=== PATIENT | female | born 1960 | race Caucasian/White ===

== ENCOUNTER 2020-08-15 01:15 | Outpatient (CLI) | payer OTHER, SELFPAY ==
--- NOTE | 2020-08-15 08:44 | DI.MAMMO_ITS ---
EXAM: MG MAMMO SCREENING CLINICAL HISTORY: SCREENING, Z12.39, FAMILY H/O BREAST CA,Z80.3 TECHNIQUE: Bilateral full field digital CC and MLO mammographic images were obtained with 3D tomosyn thesis and utilizing computer aided detection (CAD). COMPARISON: Available for comparison. FINDINGS: Masses/Architectural Distortion: None seen. Microcalcifications: No suspicious pleomorphic-type are seen. Skin Thickening/Nipple Retraction: None. IMPRESSION: 1. No significant interval change with no specific features of malignancy noted. 2. Unless there is more urgent need, screening mammography is recommended, as per [place] [employer] guidelines. BI-RADS Category 1 - Negative Breast Density - Category C - Heterogeneously dense Breast density category C or D implies that the patient has dense breast tissue. Dense breast tissue is very common and is not abnormal but dense breast tissue can make it harder to find cancer on a ma mmogram. Also, dense breast tissue may increase their breast cancer risk. This information about the result of the mammogram report was provided to the patient to raise their awareness. Use this report when you speak with the patient about their risks for breast cancer, which includes their family hist ory. At that time, you may recommend for more screening tests (Ultrasound or MRI) as they might be us eful based on their risk. A negative radiographic report should not delay biopsy if a dominant or clinically suspicious mass is present. Up to ten percent of cancers are not identified on mammography. A negative report may reinforce clinical impression. Adenosis and dense breasts may obscure an underlying neoplasm. False positive reports average 6 to 10%. Patient will receive a letter notifying them of these results.
== END 2020-08-15 01:16 ==
PROVIDERS: PCP Nurse Practitioner; Visit Provider Nurse Practitioner
DX: Z12.31 Encounter for screening mammogram for malignant neoplasm of breast (principal); Z80.3 Family history of malignant neoplasm of breast
CPT/HCPCS: 77063; 77067

== ENCOUNTER 2020-08-16 14:16 | Emergency (ER) | payer OTHER, SELFPAY ==
[2020-08-16] VITALS (46 sets, daily range): BP systolic 112–150; BP diastolic 57–88; PULSE 51–98; RESP 11–21; TEMP 36.6; O2SAT 96–100
--- NOTE | 2020-08-16 14:15 | RT.EKG_ITS ---
APPROVED REPORT Exam: Resting ECG Patient Location: E HR:63 bpm ECG Measurements Heart Rate 63 AXIS MO 116 P -10 QRSd 80 QRS 57 QT 419 T 35 QTc 429 Conclusion Sinus rhythm...normal P axis, V-rate 60- 99
--- NOTE | 2020-08-16 15:00 | DI.RAD_ITS ---
EXAM: XR CHEST 2V PA LATERAL CLINICAL HISTORY: chest pain. TECHNIQUE: 2D digital imaging was performed. COMPARISON: No exams were available for comparison FINDINGS: Heart size is normal. The mediastinum is not widened. Lungs are clear. No infiltrates nor pleural effusions. IMPRESSION: No acute pulmonary findings. DATA REPOSITORY: RADIATION DOSE DELIVERED:
[2020-08-16] MEDS: FAMOTIDINE 20 MG/50 ML BAG 200 MG IVPB (15:21)
[2020-08-16] MEDS: Mylanta Suspension 30 ML CUP PO (15:21)
[2020-08-16 15:22] LABS: Abs Immature Grans 0.02 10^3/uL (0.0-0.06); Absolute Basophil Count 0.06 10^3/uL (0.0-0.2); Absolute Eosinophil Count 0.09 10^3/uL (0.0-0.7); Basophils % 0.7; HCT 41.4 % (36.0-46.0); HGB 13.6 g/dL (11.2-15.7); Immature Grans % 0.2; Lymphocytes % 14.7; MCH 28.7 pg (27.0-33.0); MCHC 32.9 % (32.0-36.0); MCV 87.3 fL (80-95); MPV 12.2 fL (8.0-11.0); Monocytes % 5.6; Neutrophils % 77.8; Nucleated RBC 0 %; Platelet Count 182 10^3/uL (130-400); RBC 4.74 10^6/uL (3.93-5.22); RDW 12.3 % (11.7-14.6); RDW-SD 39.9 fL; WBC 8.87 10^3/uL (4.4-10.8)
[2020-08-16] MEDS: ALPRAZolam 0.25 MG TAB PO (15:22)
--- NOTE | 2020-08-16 15:35 | ED.GENADUL_ITS ---
Discharge Plan Disposition Patient Disposition: HOME Condition: Stable Discharge Details Clinical Impression: Atypical chest pain, Abdominal bloating, Anxiety Primary Care Provider: Poonam Rodriguez ED Provider: Jenny Medellin Home Meds and New Rx's Prescriptions: New famotidine [Pepcid] 20 mg tablet 20 mg PO DAILY Qty: 14 RF: 0 Continued levothyroxine 25 mcg tablet 25 mcg PO DAILY RF: 0 amlodipine 10 mg tablet 10 mg PO DAILY RF: 0 metoprolol succinate 50 mg tablet extended release 24 hr 50 mg PO DAILY RF: 0 estradiol 0.0375 mg/24 hr Patch Semiweekly 1 patch transdermal DIRECTED RF: 0 Discharge Instructions Instructions: Chest Pain (ED), Anxiety (ED) Additional Instructions: Take the Ativan as needed and directed for feelings of anxiety. Drink plenty of fluids and get plenty of rest. Follow-up with your primary care doctor in 1 week. You will receive a call from the radiology department regarding follow-up for your outpatient stress test. If your symptoms do not improve or worsen, you can also follow-up with general surgery for consideration of upper endoscopy. Return to the emergency department with any worsening or new concerning symptoms. Referrals: Shira Lovelace DO [OSTEOPATHIC DOCTOR] - Discharge Data Discharge Date/Time-TO BE ENTERED AT DEPARTURE: 08/16/20 20:35 Discharge Physician: Jenny Medellin Medical Decision Making <Yosi Duron MD - Last Filed: 08/24/20 20:45> 1530??60-year-old female here with retrosternal chest pain intermittent over the past 6 days, associated and worse with anxiety. Patient is hemodynamically stable. Patient is saturating well with no respiratory distress. Plan to obtain chest x-ray. Consideration ACS. Screening ECG was reviewed and interpreted by me: Sinus rhythm 63 bpm, normal axis, no STEMI, nondiagnostic. Initial troponin negative. Plan to obtain delta troponin. Patient is low risk by Wells criteria. Will obtain D-dimer. Consider GI etiology including esophagitis. I will give Pepcid and Mylanta. Anxiety is definitely contributing to symptoms and may be etiology. We will give Xanax 0.25 mg for anxiety. --Initial troponin negative. Chest x-ray interpreted by radiology: Negative. --Patient was reassessed and notes significant improvement in symptoms after GI meds and antiemetic. Plan for delta troponin and repeat ECG. <Jenny Elisa SrivastavajonnieDO - Last Filed: 08/21/20 09:08> 1715 -- please see Dr. Duron's note for initial presentation, exam and plan. Case endorsed to follow-up on repeat troponin and EKG. Patient is a 60-year-old female who presents with abdominal bloating and early satiety for the last several weeks with intermittent squeezing chest pain for the past week. She has no other associated symptoms. History and presentation not consistent with PE, dissection or ACS. Appears most likely consistent with GI etiology, with differential including PUD, gastritis, GERD, esophagitis. 1840 -- Repeat troponin negative. Repeat EKG unchanged. Patient reassessed and she feels much better and good to go home. We will send home with Ativan and prescription for Pepcid. An order for stress test placed. A rapid Covid test was obtained. Advised to follow up with the primary care doctor for re-evaluation. She was advised that she can also follow-up outpatient with general surgery for an upper endoscopy if her symptoms do not improve or worsen. Usual and customary return precautions given prior to discharge. Medical Records Medical records reviewed: Yes I reviewed the patient's medical records. Imaging Data Radiologic Study: Radiologist's impression: XR CHEST 2V PA LATERAL CLINICAL HISTORY: chest pain. TECHNIQUE: 2D digital imaging was performed. COMPARISON: No exams were available for comparison FINDINGS: Heart size is normal. The mediastinum is not widened. Lungs are clear. No infiltrates nor pleural effusions. IMPRESSION: No acute pulmonary findings. Lab Data Lab results reviewed: Yes I reviewed the patient's lab results. Labs: Laboratory Tests Range/Units 08/16/20 08/16/20 08/16/20 14:45 14:45 14:45 WBC (4.4-10.8) 10^3/uL 8.87 RBC (3.93-5.22) 10^6/uL 4.74 Hgb (11.2-15.7) g/dL 13.6 Hct (36.0-46.0) % 41.4 MCV (80-95) fL 87.3 MCH (27.0-33.0) pg 28.7 MCHC (32.0-36.0) % 32.9 RDW (11.7-14.6) % 12.3 Plt Count (130-400) 10^3/uL 182 MPV (8.0-11.0) fL 12.2 H Immature Gran % 0.2 Neutrophils % 77.8 Lymphocytes % 14.7 Monocytes % 5.6 Eosinophils % 1.0 Basophils % 0.7 Nucleated RBC % % 0 Absolute Neutrophils (1.2-6.7) 10^3/uL 6.90 H Absolute Lymphocytes (1.2-3.4) 10^3/uL 1.30 Absolute Monocytes (0.1-0.8) 10^3/uL 0.50 Absolute Eosinophils (0.0-0.7) 10^3/uL 0.09 Absolute Basophils (0.0-0.2) 10^3/uL 0.06 D-Dimer (<500) ng/mlFEU 222 Sodium (136-145) mmol/L 136 Potassium (3.5-5.1) mmol/L 3.9 Chloride (98-107) mmol/L 100 Carbon Dioxide (21.0-32.0) mmol/L 27.9 Anion Gap (3-11) mmol/L 8.1 BUN (7-18) mg/dL 18 Creatinine (0.55-1.02) mg/dL 0.9 Estimated GFR/1.73 m2 (mL/min/1.73m2) >= 60.00 Glucose (74-106) mg/dL 118 H Calcium (8.5-10.1) mg/dL 10.0 Magnesium (1.8-2.4) mg/dL 2.2 Total Bilirubin (0.2-1.0) mg/dL 0.3 AST (15-37) U/L 18 ALT (14-59) U/L 16 Alkaline Phosphatase (46-116) U/L 86 Troponin I (<0.06) ng/mL < 0.05 Total Protein (6.4-8.2) g/dL 7.6 Albumin (3.4-5.0) g/dL 4.5 TSH (0.36-3.74) uIU/mL 2.62 Range/Units 08/16/20 08/16/20 15:36 18:14 WBC (4.4-10.8) 10^3/uL RBC (3.93-5.22) 10^6/uL Hgb (11.2-15.7) g/dL Hct (36.0-46.0) % MCV (80-95) fL MCH (27.0-33.0) pg MCHC (32.0-36.0) % RDW (11.7-14.6) % Plt Count (130-400) 10^3/uL MPV (8.0-11.0) fL Immature Gran % Neutrophils % Lymphocytes % Monocytes % Eosinophils % Basophils % Nucleated RBC % % Absolute Neutrophils (1.2-6.7) 10^3/uL Absolute Lymphocytes (1.2-3.4) 10^3/uL Absolute Monocytes (0.1-0.8) 10^3/uL Absolute Eosinophils (0.0-0.7) 10^3/uL Absolute Basophils (0.0-0.2) 10^3/uL D-Dimer (<500) ng/mlFEU Sodium (136-145) mmol/L Potassium (3.5-5.1) mmol/L Chloride (98-107) mmol/L Carbon Dioxide (21.0-32.0) mmol/L Anion Gap (3-11) mmol/L BUN (7-18) mg/dL Creatinine (0.55-1.02) mg/dL Estimated GFR/1.73 m2 (mL/min/1.73m2) Glucose (74-106) mg/dL Calcium (8.5-10.1) mg/dL Magnesium (1.8-2.4) mg/dL Total Bilirubin (0.2-1.0) mg/dL AST (15-37) U/L ALT (14-59) U/L Alkaline Phosphatase (46-116) U/L Troponin I (<0.06) ng/mL 0.05 Total Protein (6.4-8.2) g/dL Albumin (3.4-5.0) g/dL TSH (0.36-3.74) uIU/mL Cancelled ECG Data Attestation: I personally reviewed and interpreted this ECG (s) as follows: Interpretation: #1 -- rate of 63, sinus, no acute ST elevation or depression. NJ 116. QRS 80. QTc 429. #2 -- rate of 56, sinus, no acute ST elevation or depression. NJ 134. QRS 70. QTc 432. HPI <Yosi Duron MD - Last Filed: 08/24/20 20:45> General Mode of arrival: ambulatory . Date/Time Provider Initiated Documentation: 08/16/20 14:27 . Limitations to Documentation: no limitations . Information obtained by: patient . HPI Narrative: 60-year-old female with history of Graves' disease, hypertension, here with chief complaint of chest tightness. Patient notes tightness has been intermittent, frequent brief episodes over the past 6 days. Tightness is localized to lower retrosternal. Patient notes that anxiety makes her pain worse. She has been feeling anxiety recently and notes some significant life stressors of recent. She denies history of anxiety disorder. She has no associated shortness of breath. No leg swelling or calf pain or recent immobility. She does note that she has had recent stomach issues including feeling gassy and bloated. She notes that is being treated by her primary care physician and has been maintaining a gluten-free diet which has seemed to help with her GI issues. Related Data Home Medications Medication Instructions Recorded Confirmed amlodipine 10 mg PO DAILY 08/16/20 08/16/20 estradiol 1 patch TRANSDERMAL DIRECTED 08/16/20 08/16/20 famotidine [Pepcid] 20 mg PO DAILY #14 tab 08/16/20 levothyroxine 25 mcg PO DAILY 08/16/20 08/16/20 metoprolol succinate 50 mg PO DAILY 08/16/20 08/16/20 Previous Rx's Medication Instructions Recorded famotidine [Pepcid] 20 mg PO DAILY #14 tab 08/16/20 Allergies Allergy/AdvReac Type Severity Reaction Status Date / Time amoxicillin AdvReac Intermediate rash/itchy Unverified 08/16/20 14:31 codeine AdvReac Intermediate rash / Unverified 08/16/20 14:31 itchy General Stated Complaint: Chest Pain DIANE: 2 Review of Systems <Yosi Duron MD - Last Filed: 08/24/20 20:45> All systems reviewed & are unremarkable except as noted in HPI and below Constitutional Constitutional: Denies fever(s) Cardiovascular Cardiovascular: Reports chest pain and Denies dyspnea Respiratory Respiratory: Denies cough and Denies dyspnea Gastrointestinal Gastrointestinal: Reports as per HPI, Denies abdominal pain, Denies melena, Denies hematochezia and Denies vomiting PFSH <Yosi Duron MD - Last Filed: 08/24/20 20:45> Medical History (Updated 08/16/20 @ 19:46 by Jenny Medellin DO) Graves disease Hypertension Social History Smoking/Tobacco Use Status: Former Tobacco Use Smoking risk assessment performed?: Yes Alcohol Intake: never Drug use: Occasionally Details: CBD chew Do you feel safe at home: Yes Do you feel safe in your relationship?: Yes Exam <Yosi Duron MD - Last Filed: 08/24/20 20:45> Const General: cooperative and no acute distress HENMT Mouth: mucous membranes dry Eyes Conjunctivae: normal conjunctivae Sclera: normal sclerae Neck Neck: trachea midline and supple Thyroid: other (Left neck thyroid nodule) Resp Auscultation: clear to auscultation bilaterally, no rales, no rhonchi and no wheezes Cardio Rate: regular rate and not tachycardic Rhythm: regular rhythm GI Palpation: soft, not firm, no guarding, no masses and not rigid Skin General skin exam: no rashes or lesions noted Neuro General: patient alert, patient awake and tone normal Extrem General: no edema Psych Appearance: grossly normal Mental Status: mental status grossly normal Speech and Movement: speech and movement normal Mood: anxious mood Course <Yosi Duron MD - Last Filed: 08/24/20 20:45> Vital Signs Vital signs: Vital Signs Temperature 36.6 C 08/16/20 14:21 Pulse 66 08/16/20 14:21 Respiratory Rate 16 08/16/20 14:21 Blood Pressure 142/74 H 08/16/20 14:21 Pulse Oximetry 99 08/16/20 14:21 Temperature 36.6 C 08/16/20 14:21 Temperature Source Skin 08/16/20 14:21 Pulse 61 08/16/20 15:15 Pulse 60 08/16/20 15:16 Respiratory Rate 14 08/16/20 15:25 Respiratory Effort Non-Labored 08/16/20 15:25 Respiratory Depth Normal 08/16/20 15:25 Respiratory Pattern Normal 08/16/20 15:25 Blood Pressure 134/88 08/16/20 15:15 Blood Pressure Mean 92 08/16/20 15:16 Blood Pressure Position Sitting 08/16/20 14:21 Pulse Oximetry 100 08/16/20 15:20 Oxygen Delivery Method Room Air 08/16/20 14:21 Oxygen Flow Rate 0 08/16/20 14:21 Pain Level 5 08/16/20 15:25 Lab/Test Results Lab/Test Results: Laboratory Tests Range/Units 08/16/20 14:45 WBC (4.4-10.8) 10^3/uL 8.87 RBC (3.93-5.22) 10^6/uL 4.74 Hgb (11.2-15.7) g/dL 13.6 Hct (36.0-46.0) % 41.4 MCV (80-95) fL 87.3 MCH (27.0-33.0) pg 28.7 MCHC (32.0-36.0) % 32.9 RDW (11.7-14.6) % 12.3 Plt Count (130-400) 10^3/uL 182 MPV (8.0-11.0) fL 12.2 H Immature Gran % 0.2 Neutrophils % 77.8 Lymphocytes % 14.7 Monocytes % 5.6 Eosinophils % 1.0 Basophils % 0.7 Nucleated RBC % % 0 Absolute Neutrophils (1.2-6.7) 10^3/uL 6.90 H Absolute Lymphocytes (1.2-3.4) 10^3/uL 1.30 Absolute Monocytes (0.1-0.8) 10^3/uL 0.50 Absolute Eosinophils (0.0-0.7) 10^3/uL 0.09 Absolute Basophils (0.0-0.2) 10^3/uL 0.06 Sign Out <Yosi Duron MD - Last Filed: 08/24/20 20:45> Sign Out Data: Sign Out Comment: Follow-up delta troponin and repeat ECG and reassess patient for disposition. Last updated by Yosi Duron MD at 08/16/20 17:32
[2020-08-16 15:39] LABS: ALT 16 U/L (14-59); AST 18 U/L (15-37); Albumin 4.5 g/dL (3.4-5.0); Alkaline Phosphatase 86 U/L (46-116); Anion Gap 8.1 mmol/L (3-11); BUN 18 mg/dL (7-18); Bilirubin, Total 0.3 mg/dL (0.2-1.0); CO2 27.9 mmol/L (21.0-32.0); CREATININE 0.9 mg/dL (0.55-1.02); Chloride 100 mmol/L (98-107); Glucose 118 mg/dL (74-106); Magnesium 2.2 mg/dL (1.8-2.4); Potassium 3.9 mmol/L (3.5-5.1); Sodium 136 mmol/L (136-145); Total Protein 7.6 g/dL (6.4-8.2); Troponin I < 0.05 ng/mL (<0.06)
[2020-08-16 16:25] LABS: TSH (W/Ref FT4) 2.62 uIU/mL (0.36-3.74)
[2020-08-16 16:28] LABS: D-Dimer 222 ng/mlFEU (<500)
--- NOTE | 2020-08-16 17:30 | RT.EKG_ITS ---
APPROVED REPORT Exam: Resting ECG Patient Location: E HR:56 bpm ECG Measurements Heart Rate 56 AXIS UT 134 P 64 QRSd 70 QRS 55 QT 446 T 57 QTc 432 Conclusion Sinus bradycardia...rate< 60. No STEMI. I have reviewed and interpreted ECG and agree with software generated interpretation.
[2020-08-16] MEDS: Lactated Ringers 1,000 ML 1000 ML IV (17:45)
[2020-08-16 18:37] LABS: Troponin I 0.05 ng/mL (<0.06)
[2020-08-16] MEDS: LORazepam 0.5 MG TAB 2.5 MG PO (20:28)
[2020-08-17 10:51] LABS: COVID-19 PCR Negative (Negative)
--- NOTE | 2020-08-17 12:05 | NUR.NOTE ---
Nursing Note: Pt contacted via home phone on file and notified of negative covid result.
== END 2020-08-16 20:35 | disposition home or self-care (01) ==
PROVIDERS: Student in an Organized Health Care Education/Training Program; Emergency Provider Physician Assistant; PCP Nurse Practitioner
DX: R07.89 Other chest pain (principal); R14.0 Abdominal distension (gaseous); F41.9 Anxiety disorder, unspecified; Z20.822 Contact with and (suspected) exposure to COVID-19
CPT/HCPCS: 36415; 80053; 93005; 96361; 96365; 99285; 71046; 83735; 84443; 84484; 85025; 85379; 93010; 99284

== ENCOUNTER → 2020-09-03 00:33 | Outpatient (CLI) | payer OTHER, SELFPAY ==
--- NOTE | 2020-09-03 09:00 | ETT_ITS ---
APPROVED REPORT Exam: Exercise Treadmill Patient Location: Out-Patient Room/Bed: Stress Nurse: Saba Arnold RN Ordering Provider:MARTHA NUR, Contact Number: [phone] BMI: 19.08 Baseline Rhythm: Sinus Rhythm Indications: Atypical chest pain. Medical History Medical History: Hypothyroidism, HTN, Anxiety, Palpitations. Cardiac Medications: Amlodipine, Metoprolol succinated, Levothyroxine, Lexapro. Allergies: Amoxicillin, Codeine Cardiac Risk Factors: FHX of CAD, HTN, Smoking (former) Previous Cardiac Procedures: None Pretest Chest Pain Characteristics: None Exercise History: Sedentary Physical Disabilities: None Lung Sounds: Clear to auscultation Heart Sounds: Regular Stress Test Details Test: Exercise stress testing was performed using a Justen protocol. Rest Stress HR Resting HR Supine: 63 bpm Max Heart Rate (APMHR): 158 bpm Resting HR Standin bpm Target HR (85% APMHR): 134 bpm Max HR Achieved: 156 bpm % of APMHR: 98 Recovery HR: 75 bpm HR response to stress: Normal HR response to stress BP Resting BP Supine: 142/76 mmHg Resting BP Standin/78 mmHg Max BP: 198/70 mmHg Recovery BP: 144/72 mmHg BP response to stress: Normal blood pressure response to stress. ECG Resting ECG: Sinus Rhythm Ectopy: None. Stress ECG: Sinus Tachycardia ST Change: No significant ST segment changes noted Arrhythmia: occasional PVCs, PACs. Recovery ECG: Sinus Rhythm Recovery ST Change: No significant ST segment changes noted Recovery Arrhythmia: PACs. Clinical Reason for Termination: Fatigue Stress Symptoms: Lightheaded when exercise stopped. Exercise duration: 9 min45 sec Highest Stage Reached: Stage 4: 4.2 mph at 16% grade. Exercise capacity: 11.36 METs Treviño Treadmill Score: 9.3 Rate Pressure Product: [id number] Stress ECG Conclusion 1. Electrocardiogram showed voltage for left ventricular hypertrophy 2. Patient exercised on the Justen protocol and completed a workload of 11.36 METS, limited by fatigue 3. Normal heart rate and blood pressure response to exercise. Patient achieved 98% of predicted hear t rate for age 4. Electrocardiographically there was no evidence of myocardial ischemia 5. Sporadic premature atrial and ventricular contractions were seen Treviño Treadmill Score is 9.3 which is Low risk. Stress Test Summary STAGE Time (mins) Speed (mph) Grade (%) HR BP SYMPTOMS METS Supine 63 142/76 Standing 83 140/78 1 3 1.7 10 121 162/70 4.6 2 6 2.5 12 135 176/68 7 3 9 3.4 14 145 198/70 10.2 1 min recovery 130 180/64 Lightheaded. Symptoms resolved when lying on stretcher. 3 min recovery 90 166/70 6 min recovery 75 144/72
== END ==
PROVIDERS: PCP Nurse Practitioner; Visit Provider Nurse Practitioner
DX: R07.89 Other chest pain (principal); Z82.49 Family history of ischemic heart disease and other diseases of the circulatory system; I10 Essential (primary) hypertension; Z87.891 Personal history of nicotine dependence; I49.1 Atrial premature depolarization; I49.3 Ventricular premature depolarization; I51.7 Cardiomegaly
CPT/HCPCS: 93017

== ENCOUNTER 2020-10-30 02:03 | Outpatient (CLI) | payer OTHER, SELFPAY ==
--- NOTE | 2020-10-30 07:37 | DI.US_ITS ---
APPROVED REPORT EXAM: Comprehensive 2D, Doppler, and color-flow Echocardiogram Patient Location: Out-Patient Slope Hoist Operator: Chica Duffy RDCS (AE) Indications: Ventricular hypertrophy, Atypical chest pain Other Information Study Quality: Good Conclusion Left Ventricle : The left ventricle is normal size. The left ventricular systolic function is normal. The left ventricular ejection fraction is within the normal range. There is normal left ventricular wall thickness. There is normal LV segmental wall motion. The left ventricular diastolic function is normal. LVEF is 60%. Right Ventricle : The right ventricle is normal size. The right ventricular systolic function is norm al. The RVSP is 21.6 mmHg. Atria : The left atrium size is normal. The right atrium size is normal. Mitral Valve : The mitral valve is normal in structure. Mild mitral regurgitation. No evidence of marzena ral valve stenosis. Great Vessels : The aortic root is normal in size. Ascending aorta is not well visualized. IVC is nor mal in size and collapses >50% with inspiration. Wall motion Left Ventricle The left ventricle is normal size. The left ventricular systolic function is normal. The left ventric ular ejection fraction is within the normal range. There is normal left ventricular wall thickness. T here is normal LV segmental wall motion. The left ventricular diastolic function is normal. There is no ventricular septal defect visualized. LVEF is 60%. Right Ventricle The right ventricle is normal size. The right ventricular systolic function is normal. The RVSP is 21 .6 mmHg. Atria The left atrium size is normal. The right atrium size is normal. The interatrial septum is intact wit h no evidence for an atrial septal defect. Aortic Valve The aortic valve is normal in structure. Aortic valve is trileaflet. There is no aortic valvular sten osis. No aortic regurgitation is present. Mitral Valve The mitral valve is normal in structure. No evidence of mitral valve stenosis. Mild mitral regurgitat ion. Tricuspid Valve The tricuspid valve is normal in structure. There is no tricuspid valve stenosis. Trace tricuspid reg urgitation. Pulmonic Valve The pulmonary valve is normal in structure. There is no pulmonic valvular stenosis. There is no pulmo johan valvular regurgitation. Great Vessels The aortic root is normal in size. Ascending aorta is not well visualized. IVC is normal in size and collapses >50% with inspiration. Pericardium There is no pericardial effusion. 2D Dimensions IVSD d PLAX 0.79 cm F: 0.6-1.0 LV Vol A2C d MOD 59.5 mL LVPW d PLAX 0.79 cm F: 0.6 - 1.0 LV Vol A4C d MOD 56.5 mL LVID d PLAX 4.41 cm F: 3.8 - 5.2 LA vol/ BSA A2C s A-L 29.7 mL/m2 LVDs 2.85 cm F: 2.2 - 3.5 LA vol/ BSA A4C s A-L 20.9 mL/m2 Ao Root d 2.16 cm F: 2.7 - 3.3 LA Vol/ BSA Biplane s A-L 26.7 mL/m2 RA Area A4C 8.24 cm2 LA Area A4C s MOD 12.20 cm2 RA Vol/ BSA A4C s A-L 10.4 mL/m2 LA Area A2C s MOD 15.55 cm2 LV EF Teichholz 64.8 % LV EF A4C MOD 58.4 % LVEF (Rizvi's) 58.44 % F: 54 - 74 LV EF A2C MOD 59.9 % LV Volume 49.11 mL F: 46 - 106 LV EF Biplane MOD 58.4 % LV Volume Index 34.10 mL/m2 F: 29 - 61 SV 33.90 mL LV Vol Biplane MOD 58.0 mL SV Index 23.50 mL/m2 FS 35.20 % M-Mode TAPSE 2.50 cm (M/F) >1.7 LV Diastology MV E' medial 0.106 (>0.07 m/s) E/A Ratio 1.6 LV E/e MED 7.25 (<14) MV E Vmax 0.78 (0.4-1.3 m/s) MV E' lateral 0.117 (>0.1 m/s) MV A Vmax 0.50 (0.4-1.3 m/s) LV E/e LAT 6.60 (<14) MV E/A Ratio 1.53 MV E/E' medial 7.29 MV E/E' lateral 6.61 Aortic Valve LVOT Area 2.86 cm2 AoV Area Vmax 2.27 cm2 LVOT Vmax 1.14 m/s AoV Area/ BSA (Vmax) 1.57 cm2/m2 LVOT Mean Meliton. 0.72 m/s SERGEI Mean Meliton. 2.18 cm2 LVOT Peak Grad 5.2 mmHg SERGEI Mean Meliton. Index 1.51 cm2/m2 LVOT Mean Grad 2.5 mmHg LVOT VTI 0.294 m LVOT Diam s 1.90 cm AoV Vmax 1.43 m/s Velocity Ratio 0.79 AoV Mean Meliton. 0.95 m/s AoV Peak Grad 8.2 mmHg LVOT SV 84.05 mL AoV Mean Grad 4.1 mmHg AoV VTI 0.319 m AoV Area VTI 2.64 cm2 AoV Area/ BSA (VTI) 1.83 cm/m2 Mitral Valve MV DT 193 (160-240 msec) MR Vmax 4.07 m/s MV PHT 56 msec MR VTI 1.602 m MV Area PHT 3.92 cm2 MR Peak Grad 66.4 mmHg MV VTI 0.311 m MR Mean Grad 50.8 mmHg MV VTI Annulus 0.288 m MR PISA Radius 0.40 cm MV Area VTI 2.52 (4.0-6.0 cm2) MR EROA 0.09 cm2 MR Aliasing Velocity 0.35 m/s MR PISA 1.03 cm2 Pulmonary Valve PV Vmax 0.97 (0.5-1.5 m/s) RVOT Peak Gr. 2.52 mmHg PV Peak Grad 3.8 mmHg RVOT Mean Gr. 1.20 mmHg PV Mean Grad 2.0 mmHg RVOT VTI 0.192 m PV VTI 0.243 m RVOT Vmax 0.79 m/s Tricuspid Valve TR Peak Grad 18.5 mmHg TR Vmax 2.16 m/s RA Pressure 3.00 mmHg RVSP (TR) 21.6 mmHg
== END 2020-10-30 02:23 ==
PROVIDERS: PCP Nurse Practitioner; Visit Provider Nurse Practitioner
DX: R07.89 Other chest pain (principal); I51.7 Cardiomegaly; I34.0 Nonrheumatic mitral (valve) insufficiency
CPT/HCPCS: 93306

== ENCOUNTER 2021-08-26 12:10 | Outpatient (REF) | payer OTHER, SELFPAY ==
[2021-08-26 15:23] LABS: HCT 38.3 % (36.0-46.0); HGB 12.3 g/dL (11.2-15.7); MCH 28.7 pg (27.0-33.0); MCHC 32.1 % (32.0-36.0); MCV 89.3 fL (80-95); MPV 12.4 fL (8.0-11.0); Platelet Count 149 10^3/uL (130-400); RBC 4.29 10^6/uL (3.93-5.22); RDW 12.7 % (11.7-14.6); RDW-SD 41.7 fL; WBC 5.99 10^3/uL (4.4-10.8)
[2021-08-26 15:51] LABS: Anion Gap 8.5 mmol/L (3-11); BUN 16 mg/dL (7-18); CO2 30.5 mmol/L (21.0-32.0); CREATININE 0.9 mg/dL (0.55-1.02); Calcium 9.3 mg/dL (8.5-10.1); Chloride 102 mmol/L (98-107); Glucose 80 mg/dL (74-106); Sodium 141 mmol/L (136-145); TSH 1.42 uIU/mL (0.36-3.74)
== END 2021-08-26 12:11 | disposition home or self-care (01) ==
LOC: LBN 12:10
PROVIDERS: PCP Nurse Practitioner; Visit Provider Nurse Practitioner Family
DX: I10 Essential (primary) hypertension (principal); E07.9 Disorder of thyroid, unspecified; R11.10 Vomiting, unspecified; F41.9 Anxiety disorder, unspecified
CPT/HCPCS: 80048; 85027; 84443

== ENCOUNTER 2021-10-25 14:49 | Outpatient (REF) | payer OTHER, SELFPAY ==
[2021-10-28 16:11] LABS: IgA 80 mg/dL (85-499); Interpretation (See Note); Tissue Transglutaminase IgA <1.2 U/mL (<4.0)
== END 2021-10-25 14:50 | disposition home or self-care (01) ==
LOC: NCHCN 14:49
PROVIDERS: PCP Nurse Practitioner; Visit Provider Nurse Practitioner Family
DX: R19.7 Diarrhea, unspecified (principal); R11.2 Nausea with vomiting, unspecified
CPT/HCPCS: 82784; 83516

== ENCOUNTER 2021-10-25 19:07 | Outpatient (REF) | payer OTHER, SELFPAY | END 2021-10-25 19:08 | disposition home or self-care (01) | LOC: NCHCN 19:07 | PROVIDERS: PCP Nurse Practitioner; Visit Provider Nurse Practitioner Family ==